=== PATIENT | male | born 1950 | race Caucasian/White ===

== ENCOUNTER 2018-01-17 10:12 | Emergency (ER) | payer MEDICARE, SELFPAY ==
[2018-01-17 10:16] VITALS: BP 148/85; PULSE 79; RESP 18; TEMP 36.5; O2SAT 96
--- NOTE | 2018-01-17 10:41 | DI.US_ITS ---
SYMPTOM/DIAGNOSIS: SWELLING RIGHT LOWER EXTREMITY, R/O DVT DUPLEX VENOUS ULTRASOUND RIGHT LOWER EXTREMITY 01/17/18 Duplex evaluation of the deep venous system was performed according to the usual protocol. The deep veins are freely compressible throughout to the level of the popliteal veins. There is normal doppler flow visible throughout and there is excellent flow augmentation with manual calf compression. CONCLUSION: No evidence of deep venous thrombosis right lower extremity.
--- NOTE | 2018-01-17 10:41 | DI.RAD_ITS ---
SYMPTOM/DIAGNOSIS: MEDIAL KNEE PAIN X 1 MONTH LEFT KNEE: 01/17/18 Three views were obtained. There is minimal hypertrophic degenerative spurring of the bones of the knee. No other abnormality seen.
--- NOTE | 2018-01-17 10:43 | W.ED.GENAD ---
Discharge Plan Disposition Patient Disposition: HOME Condition: Good Discharge Details Chief Complaint: Orthopedic Clinical Impression: Chronic pain of left knee, Right leg swelling ED Provider: Adam Wilkes Home Meds and New Rx's Prescriptions: No Action folic acid 20 MG capsule 20 mg PO DAILY RF: 0 sertraline 100 MG tablet 100 mg PO DAILY RF: 0 meloxicam 7.5 MG tablet 7.5 mg PO DAILY RF: 0 bupropion HCl [Wellbutrin] 100 MG tablet 150 mg PO BID RF: 0 dextroamphetamine-amphetamine [Adderall XR] 20 MG capsule,extended release 24hr 20 mg PO DAILY RF: 0 baclofen 10 MG tablet 10 mg PO DAILY RF: 0 pantoprazole 40 MG tablet,delayed release (DR/EC) 40 mg PO BID RF: 0 ibuprofen 200 mg Capsule 400 mg PO QID PRNRF: 0 tramadol 50 mg Tablet 50 mg PO TID PRNRF: 0 Discharge Instructions Instructions: Leg Edema (ED), Arthritis (ED) Additional Instructions: Please take Tylenol and Motrin for the pain in your knee. Please continue to wrap it with an Miguel bandage and use your brace. Please use compression stockings for your right lower extremity to reduce the swelling, keep your leg elevated as often as possible, and avoid prolonged standing. Please follow-up with your orthopedic surgeon as soon as possible in [place] for reevaluation of your left knee arthritis. If you notice any worsening of your symptoms, or any new symptoms such as vomiting, diarrhea, fever, chills, shortness of breath, chest pain, numbness, weakness, or fainting , please return immediately to the emergency department for reevaluation. Please follow up with your primary care provider as soon as possible for reassessment and reevaluation. As always, it was a pleasure participating in your medical care today. Medical Decision Making This is a pleasant 67-year-old male who presents with a one-month complaint of left knee pain, as well as swelling in his right lower extremity. The swelling is mild in the right lower extreme, the pain is minimal in his left knee. Patient shows no symptoms of chest pain, shortness of breath or systemic symptoms of blood clot for his vital signs, however he does have a risk factor of recent long flight from [place]. DVT is on the differential for the right lower extremity however this could be secondary to just idiopathic swelling since it is so mild. In regards to his left knee he denies any recent injuries. 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 Pain is mild, no evidence of significant meniscal injury or ligamentous laxity. Differential is high for arthritis as the cause of his symptoms. We will get an x-ray of the left knee and ultrasound of the right knee to rule out DVT. The patient lives in [place], and does not have an orthopedic surgeon here. He will be returning to [place] shortly where I feel he would benefit from follow-up. 11:47 AM Ultrasound result per Dr. Solomon is negative for any evidence of DVT/blood clot. X-ray shows evidence of arthritis but no other acute process. Patient's pain is well managed. I feel he can be discharged home, we will recommend compression stockings, continue Tylenol and Motrin, and close follow-up. We discussed red flags which to return and patient and family understand. I have extensively reviewed the treatment plan and discharge instructions with the patient and their family. I have addressed all patient concerns at this time. The patient and family was made aware of what symptoms to monitor for that would warrant a return to the emergency department. Discussed the plan with the patient and family, they demonstrate verbal understanding and agreement with our assessment and plan at this time. HPI General Date/Time Provider Initiated Documentation: 01/17/18 10:40. 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 They did recently fly from [place] slightly greater than a month ago just prior to when his symptoms started. For his left knee pain it is worse with movement, is very mild in nature, occasionally notice a click. It is slightly improved with home Aleve. No other associated symptoms. No history of recent trauma. Patient states that the swelling has been present in the right lower extremity for the last month, slightly worse now than before. Occasional tenderness throughout, with no focal tenderness. He denies any history of previous swelling, history of clot, trauma to the extremity. It is improved with elevation. He denies any history of congestive heart failure. He denies any other complaints at this time. No other modifying factors at this time. No pertinent family history. Denies PE risk factors of immobilization, recent surgery, prior history of DVT or PE, family history of PE or DVT, morbid obesity, exogenous estrogen and smoking, hemoptysis, history of cancer. Related Data Home Medications Medication Instructions Recorded Confirmed baclofen 10 mg PO DAILY 05/28/12 01/17/18 bupropion HCl [Wellbutrin] 150 mg PO BID 05/28/12 01/17/18 dextroamphetamine-amphetamine 20 mg PO DAILY 05/28/12 01/17/18 [Adderall XR] meloxicam 7.5 mg PO DAILY 05/28/12 01/17/18 pantoprazole 40 mg PO BID 05/28/12 01/17/18 sertraline 100 mg PO DAILY 05/28/12 01/17/18 folic acid 20 mg PO DAILY 11/14/16 01/17/18 ibuprofen 400 mg PO QID PRN 01/17/18 01/17/18 tramadol 50 mg PO TID PRN 01/17/18 01/17/18 Allergies Allergy/AdvReac Type Severity Reaction Status Date / Time No Known Allergies Allergy Unverified 01/17/18 10:20 General Stated Complaint: Orthopedic ROSA: 4 Review of Systems Review of Systems All systems reviewed & are unremarkable except as noted in HPI and below PFSH Social History Smoking/Tobacco Use Status: Current every day Surgical History Augustina Fundoplication neck surgery Exam Narrative Exam Narrative: 1.Const: Well-nourished, Well-developed, appearing stated age 2.Eyes: PERRL, no conjunctival injection, and symmetrical lids. 3.ENT: Atraumatic external nose and ears. Moist MM. Neck: Symmetric, trachea midline, No thyromegaly. 4.CVS: +S1/S2, No murmurs or gallops. Peripheral pulses 2+ and equal in all extremities. Brisk capillary refill in all extremities. 5.RESP: Unlabored respiratory effort. Clear to auscultation bilaterally. No wheezes rales or rhonchi 6.GI: Soft, Nontender/Nondistended, No hepatosplenomegaly. No guarding or rebound. 7.MSK: Normocephalic/Atraumatic, Extremities w/o deformity or ttp No cyanosis or clubbing, Normal movement of all extremities. Left lower extremity demonstrates minimal pain on the medial aspect of the knee, with some mild ropey tenderness of the medial knee ligaments. No posterior popliteal tenderness, no swelling of the lower extremity on the left. Anterior and posterior ACL testing demonstrates no evidence of laxity or deformity, no pain or tenderness on varus or valgus stressing. No pain with Jannie's test. No other abnormalities on the exam. He does have a notable tibial plateau secondary to his history of Lauren slaughters. Examination of the right lower extremity demonstrates mild swelling throughout, no focal tenderness. Less than +1 pitting edema of the right lower extremity including over the foot. Sensation is intact. No focal calf tenderness. Dorsalis pedis and posterior tibial pulse +2 bilaterally. Sensation intact throughout. No pain with movement of the knee or foot. No evidence of erythema or gallop. 8.Skin: Warm, Dry. No rashes or lesions. 9.Neuro: parts cleaner II-XII grossly intact. Sensation grossly intact, no focal neurologic deficits. 10.Psych: (AAO) x3. Appropriate mood and affect Course Vital Signs Temperature 36.5 C 01/17/18 10:16 Pulse 79 01/17/18 10:16 Respiratory Rate 18 01/17/18 10:16 Blood Pressure 148/85 H 01/17/18 10:16 Pulse Oximetry 96 01/17/18 10:16 Temperature 36.5 C 01/17/18 10:16 Temperature Source Temporal Artery Scan 01/17/18 10:16 Pulse 79 01/17/18 10:16 Respiratory Rate 18 01/17/18 10:16 Respiratory Effort Non-Labored 01/17/18 10:18 Blood Pressure 148/85 H 01/17/18 10:16 Blood Pressure Position Sitting 01/17/18 10:16 Pulse Oximetry 96 01/17/18 10:16 Oxygen Delivery Method Room Air 01/17/18 10:16 Oxygen Flow Rate 0 01/17/18 10:16 Pain Level 2 01/17/18 10:16
--- NOTE | 2018-01-17 10:49 | ED.GENADUL_ITS ---
Discharge Plan Disposition Patient Disposition: HOME Condition: Good Discharge Details Chief Complaint: Orthopedic Clinical Impression: Chronic pain of left knee, Right leg swelling ED Provider: Adam Wilkes Home Meds and New Rx's Prescriptions: No Action folic acid 20 MG capsule 20 mg PO DAILY RF: 0 sertraline 100 MG tablet 100 mg PO DAILY RF: 0 meloxicam 7.5 MG tablet 7.5 mg PO DAILY RF: 0 bupropion HCl [Wellbutrin] 100 MG tablet 150 mg PO BID RF: 0 dextroamphetamine-amphetamine [Adderall XR] 20 MG capsule,extended release 24hr 20 mg PO DAILY RF: 0 baclofen 10 MG tablet 10 mg PO DAILY RF: 0 pantoprazole 40 MG tablet,delayed release (DR/EC) 40 mg PO BID RF: 0 ibuprofen 200 mg Capsule 400 mg PO QID PRNRF: 0 tramadol 50 mg Tablet 50 mg PO TID PRNRF: 0 Discharge Instructions Instructions: Leg Edema (ED), Arthritis (ED) Additional Instructions: Please take Tylenol and Motrin for the pain in your knee. Please continue to wrap it with an Miguel bandage and use your brace. Please use compression stockings for your right lower extremity to reduce the swelling, keep your leg elevated as often as possible, and avoid prolonged standing. Please follow-up with your orthopedic surgeon as soon as possible in [place] for reevaluation of your left knee arthritis. If you notice any worsening of your symptoms, or any new symptoms such as vomiting, diarrhea, fever, chills, shortness of breath, chest pain, numbness, weakness, or fainting , please return immediately to the emergency department for reevaluation. Please follow up with your primary care provider as soon as possible for reassessment and reevaluation. As always, it was a pleasure participating in your medical care today. Medical Decision Making This is a pleasant 67-year-old male who presents with a one-month complaint of left knee pain, as well as swelling in his right lower extremity. The swelling is mild in the right lower extreme, the pain is minimal in his left knee. Patient shows no symptoms of chest pain, shortness of breath or systemic symptoms of blood clot for his vital signs, however he does have a risk factor of recent long flight from [place]. DVT is on the differential for the right lower extremity however this could be secondary to just idiopathic swelling since it is so mild. In regards to his left knee he denies any recent injuries. 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 Pain is mild, no evidence of significant meniscal injury or ligamentous laxity. Differential is high for arthritis as the cause of his symptoms. We will get an x-ray of the left knee and ultrasound of the right knee to rule out DVT. The patient lives in [place], and does not have an orthopedic surgeon here. He will be returning to [place] shortly where I feel he would benefit from follow-up. 11:47 AM Ultrasound result per Dr. Solomon is negative for any evidence of DVT/blood clot. X-ray shows evidence of arthritis but no other acute process. Patient's pain is well managed. I feel he can be discharged home, we will recommend compression stockings, continue Tylenol and Motrin, and close follow-up. We discussed red flags which to return and patient and family understand. I have extensively reviewed the treatment plan and discharge instructions with the patient and their family. I have addressed all patient concerns at this time. The patient and family was made aware of what symptoms to monitor for that would warrant a return to the emergency department. Discussed the plan with the patient and family, they demonstrate verbal understanding and agreement with our assessment and plan at this time. HPI General Date/Time Provider Initiated Documentation: 01/17/18 10:40 . HPI Narrative: This is a 67-year-old male with a past medical history of [place]-Schlatter's disease, and a distant history of left knee surgery for his [place]-Schlatter's, who presents today for left knee pain and right lower extremity swelling for the last month. They did recently fly from [place] slightly greater than a month ago just prior to when his symptoms started. For his left knee pain it is worse with movement, is very mild in nature, occasionally notice a click. It is slightly improved with home Aleve. No other associated symptoms. No history of recent trauma. Patient states that the swelling has been present in the right lower extremity for the last month, slightly worse now than before. Occasional tenderness throughout, with no focal tenderness. He denies any history of previous swelling, history of clot, trauma to the extremity. It is improved with elevation. He denies any history of congestive heart failure. He denies any other complaints at this time. No other modifying factors at this time. No pertinent family history. Denies PE risk factors of immobilization, recent surgery, prior history of DVT or PE, family history of PE or DVT, morbid obesity, exogenous estrogen and smoking, hemoptysis, history of cancer. Related Data Home Medications Medication Instructions Recorded Confirmed baclofen 10 mg PO DAILY 05/28/12 01/17/18 bupropion HCl [Wellbutrin] 150 mg PO BID 05/28/12 01/17/18 dextroamphetamine-amphetamine 20 mg PO DAILY 05/28/12 01/17/18 [Adderall XR] meloxicam 7.5 mg PO DAILY 05/28/12 01/17/18 pantoprazole 40 mg PO BID 05/28/12 01/17/18 sertraline 100 mg PO DAILY 05/28/12 01/17/18 folic acid 20 mg PO DAILY 11/14/16 01/17/18 ibuprofen 400 mg PO QID PRN 01/17/18 01/17/18 tramadol 50 mg PO TID PRN 01/17/18 01/17/18 Allergies Allergy/AdvReac Type Severity Reaction Status Date / Time No Known Allergies Allergy Unverified 01/17/18 10:20 General Stated Complaint: Orthopedic ROSA: 4 Review of Systems Review of Systems All systems reviewed & are unremarkable except as noted in HPI and below PFSH Social History Smoking/Tobacco Use Status: Current every day Surgical History Augustina Fundoplication neck surgery Exam Narrative Exam Narrative: 1.Const: Well-nourished, Well-developed, appearing stated age 2.Eyes: PERRL, no conjunctival injection, and symmetrical lids. 3.ENT: Atraumatic external nose and ears. Moist MM. Neck: Symmetric, trachea midline, No thyromegaly. 4.CVS: +S1/S2, No murmurs or gallops. Peripheral pulses 2+ and equal in all extremities. Brisk capillary refill in all extremities. 5.RESP: Unlabored respiratory effort. Clear to auscultation bilaterally. No wheezes rales or rhonchi 6.GI: Soft, Nontender/Nondistended, No hepatosplenomegaly. No guarding or rebound. 7.MSK: Normocephalic/Atraumatic, Extremities w/o deformity or ttp No cyanosis or clubbing, Normal movement of all extremities. Left lower extremity demonstrates minimal pain on the medial aspect of the knee, with some mild ropey tenderness of the medial knee ligaments. No posterior popliteal tenderness, no swelling of the lower extremity on the left. Anterior and posterior ACL testing demonstrates no evidence of laxity or deformity, no pain or tenderness on varus or valgus stressing. No pain with Jannie's test. No other abnormalities on the exam. He does have a notable tibial plateau secondary to his history of Lauren slaughters. Examination of the right lower extremity demonstrates mild swelling throughout, no focal tenderness. Less than +1 pitting edema of the right lower extremity including over the foot. Sensation is intact. No focal calf tenderness. Dorsalis pedis and posterior tibial pulse +2 bilaterally. Sensation intact throughout. No pain with movement of the knee or foot. No evidence of erythema or gallop. 8.Skin: Warm, Dry. No rashes or lesions. 9.Neuro: video clerk II-XII grossly intact. Sensation grossly intact, no focal neurologic deficits. 10.Psych: (AAO) x3. Appropriate mood and affect Course Vital Signs Temperature 36.5 C 01/17/18 10:16 Pulse 79 01/17/18 10:16 Respiratory Rate 18 01/17/18 10:16 Blood Pressure 148/85 H 01/17/18 10:16 Pulse Oximetry 96 01/17/18 10:16 Temperature 36.5 C 01/17/18 10:16 Temperature Source Temporal Artery Scan 01/17/18 10:16 Pulse 79 01/17/18 10:16 Respiratory Rate 18 01/17/18 10:16 Respiratory Effort Non-Labored 01/17/18 10:18 Blood Pressure 148/85 H 01/17/18 10:16 Blood Pressure Position Sitting 01/17/18 10:16 Pulse Oximetry 96 01/17/18 10:16 Oxygen Delivery Method Room Air 01/17/18 10:16 Oxygen Flow Rate 0 01/17/18 10:16 Pain Level 2 01/17/18 10:16
[2018-01-17 11:51] VITALS: BP 148/85; PULSE 79; RESP 18; TEMP 36.5; O2SAT 96
== END 2018-01-17 11:51 | disposition home or self-care (01) ==
LOC: ER 11:57
PROVIDERS: Emergency Provider Student in an Organized Health Care Education/Training Program; PCP Family Medicine
DX: M25.562 Pain in left knee (principal); R22.41 Localized swelling, mass and lump, right lower limb
CPT/HCPCS: 73562; 99284; 93971